=== PATIENT | male | born 1965 | race African-American/Black ===

== ENCOUNTER 2020-05-21 07:28 | Outpatient (CLI) | payer MEDICARE, MEDICAID, SELFPAY | END 2020-05-21 07:29 | disposition home or self-care (01) | PROVIDERS: PCP Family Medicine; Visit Provider Family Medicine | DX: Z01.10 Encounter for examination of ears and hearing without abnormal findings (principal) | CPT/HCPCS: 92552; 92556; 92567 ==

== ENCOUNTER 2021-12-28 10:59 | Outpatient (CLI) | payer MEDICARE, MEDICAID, SELFPAY | END 2021-12-28 11:00 | disposition home or self-care (01) | LOC: ANHAUDIO 11:00 | PROVIDERS: PCP Family Medicine; Visit Provider Family Medicine | DX: H90.3 Sensorineural hearing loss, bilateral (principal) | CPT/HCPCS: 92557; 92567 ==

== ENCOUNTER 2023-05-09 09:36 | Outpatient (CLI) | payer MEDICARE, MEDICAID, SELFPAY | END 2023-05-09 09:37 | disposition home or self-care (01) | LOC: ANHAUDIO 09:36 | PROVIDERS: PCP Physician Assistant; Visit Provider Physician Assistant | DX: H90.3 Sensorineural hearing loss, bilateral (principal) | CPT/HCPCS: 92557; 92567 ==